=== PATIENT | female | born 1945 | race Caucasian/White ===

== ENCOUNTER 2018-02-10 10:58 | Inpatient (IN) | payer OTHER ==
[2018-02-10] MEDS ORDERED: NA CHLORIDE 0.9% 1,000 ML ONE ×2 (11:46→15:12)
[2018-02-10 12:11] LABS: Absolute Lymphocytes (CBC) 0.8 K/uL (0.7-4.9); Absolute Monocytes 0.6 K/uL (0.1-1.3); Absolute Neutrophil 7.8 K/uL (1.8-8.0); Basophils % 0.5 % (0-1.3); Eosinophils % 0.2 % (0-4.4); Hematocrit 36.1 % (36.0-45.0); Lymphocytes % 8.7 % (15.3-44.8); MCH 37.8 pg (27.0-35.0); MCV 110.3 fL (80-100); Monocytes % 6.1 % (3.3-12.3); RBC Red Blood Cell Count 3.27 M/uL (3.86-4.86)
[2018-02-10 12:27] LABS: Protime INR 1.08
--- NOTE | 2018-02-10 12:37 | RAD REPORT ---
EXAM DESCRIPTION: RAD - Chest Single View - 02/10/2018 12:07 pm CLINICAL HISTORY: DYSPNEA Chest pain. COMPARISON: No comparisons FINDINGS: Portable technique limits examination quality. The lungs are grossly clear. The heart is normal in size. No displaced fractures. IMPRESSION: No acute intrathoracic process suspected.
[2018-02-10 12:43] LABS: ALT/SGPT 33 U/L (12-78); AST/SGOT 27 U/L (15-37); Albumin 2.8 g/dL (3.4-5.0); Alkaline Phosphatase 107 U/L (45-117); BUN Blood Urea Nitrogen 13 mg/dL (7-18); Bicarbonate 25 mmol/L (21-32); Bilirubin Direct 0.4 mg/dL (0-0.2); Bilirubin Total 1.1 mg/dL (0.2-1.0); Glucose Level 122 mg/dL (74-106); Magnesium 1.9 mg/dL (1.8-2.4); NT PRO-BNP 330 pg/mL (<125); Potassium 3.9 mmol/L (3.5-5.1); Protein, Total 6.4 g/dL (6.4-8.2); Sodium Level 138 mmol/L (136-145); Troponin (Emerg Dept Use Only) < 0.02 ng/mL (0.0-0.045)
[2018-02-10 12:52] LABS: Anisocytosis 1+; Blood Morphology Comment NOTED (NOT SEEN); Macrocytosis 2+; Platelet Estimate ADEQ; Urine White Blood Cell Casts OK
[2018-02-10 13:57] LABS: Folic Acid, (Folate) 2.3 ng/mL (3.1-17.5)
[2018-02-10] MEDS ORDERED: FOLIC ACID 5 MG/ML VIAL ONE (14:22)
--- NOTE | 2018-02-10 14:36 | RAD REPORT ---
EXAM DESCRIPTION: CTAbdomen Pelvis W Contrast - 02/10/2018 2:21 pm CLINICAL HISTORY: Abdominal pain. iv only;Abd pain COMPARISON: No comparisons TECHNIQUE: Biphasic CT imaging of the abdomen and pelvis was performed with 100 ml non-ionic IV cont rast. All CT scans are performed using dose optimization technique as appropriate and may include automated exposure control or mA/KV adjustment according to patient size. FINDINGS: The lung bases are clear.Small hiatal hernia. Diffuse fatty liver is present. The spleen, pancreas and adrenal glands are normal. Few areas of livia ical hypodensity noted in both kidneys may be related to previous infection. No hydronephrosis or agg ressive renal mass. No bowel obstruction, free air, free fluid or abscess. Large amount of stool is seen in the rectum wi th perirectal fat stranding and thickening. The urinary bladder is markedly distended. The appendix i s not identified as a discrete structure, however, no secondary findings of appendicitis are identifi ed. No evidence of significant lymphadenopathy. Mild L1 compression deformity is present. IMPRESSION: Rectal fecal impaction with stercoral colitis suspected. Marked urinary bladder distention may be related to bladder outlet obstruction or neurogenic bladder. Advise clinical correlation. Mild L1 compression deformity is present, age uncertain but probably chronic.
[2018-02-10] MEDS ORDERED: ONDANSETRON 4 MG/2 ML VIAL ONE (14:44)
--- NOTE | 2018-02-10 15:00 | ER ---
Nurse's Notes [facility] Name: Angle Gray Age: 72 yrs Sex: Female : 1945 Arrival Date: 02/10/2018 Time: 11:02 Bed 26 Private MD: Diagnosis: Hypotension;Stercoral colitis;Folate deficiency anemia;Fecal impaction Presentation: 02/10 11:11 Presenting complaint: Patient states: She has been having generalized weakness for the aj1 past few months, but this morning it was worse than it has ever been. Reports dizziness upon standing, and malaise. States that she had diarrhea last night, but she has been constipated before that. Denies cough, congestion, fever. 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 Transition of care: patient was not received from another setting of care. Onset of symptoms was February 10, 2018. Risk Assessment: Do you want to hurt yourself or someone else? Patient reports no desire to harm self or others. Initial Sepsis Screen: Does the patient meet any 2 criteria? Systolic BP < 90 mmHg. HR > 90 bpm. Yes Does the patient have a suspected source of infection? No. Patient's initial sepsis screen is negative. Care prior to arrival: None. 11:11 Acuity: NABIL 2 aj1 11:11 Method Of Arrival: EMS: [facility] aj1 Triage Assessment: 11:15 General: Appears in no apparent distress. uncomfortable, Behavior is calm, cooperative, aj1 appropriate for age. Pain: Denies pain. Historical: - Allergies: 11:15 Nitrofurantoin Macrocrystal; aj1 - Home Meds: 11:15 None [Active]; aj1 - PMHx: 11:15 "heart valve problem"; aj1 - PSHx: 11:15 D \\T\\ C; Tonsillectomy; Carpal Tunnel Repair; aj1 - Immunization history:: Flu vaccine is not up to date. - Social history:: Smoking status: Patient uses tobacco products, smokes one pack cigarettes per day. - Ebola Screening: : Patient denies travel to an Ebola-affected area in the 21 days before illness onset. Screenin:16 Abuse screen: Denies threats or abuse. Denies injuries from another. Nutritional aj1 screening: No deficits noted. Tuberculosis screening: No symptoms or risk factors identified. 17:01 Fall Risk No fall in past 12 months (0 pts). Secondary diagnosis (15 points) impaired aj1 mobility, IV access (20 points). Ambulatory Aid- None/Bed Rest/Nurse Assist (0 pts). Gait- Weak (10 pts.). Mental Status- Oriented to own ability (0 pts). Total Quintana Fall Scale indicates High Risk Score (45 or more points). As available patient and family educated on Fall Prevention Program and Strategies. Assessment: 11:16 General: Appears in no apparent distress. uncomfortable, Behavior is calm, cooperative, aj1 appropriate for age, Reports feeling ill for > 3 days, fatigue for >3 days. Pain: Denies pain. Neuro: Level of Consciousness is awake, alert, obeys commands, Oriented to person, place, time, situation, Moves all extremities. Reports generalized weakness. Speech is normal, Facial symmetry appears normal, Reports dizziness, generalized weakness. Cardiovascular: Heart tones S1 S2 present Patient's skin is warm and dry. Respiratory: Airway is patent Respiratory effort is even, unlabored, Respiratory pattern is regular, symmetrical, Breath sounds are clear bilaterally. GI: Abdomen is non-distended, Reports diarrhea. : No signs and/or symptoms were reported regarding the genitourinary system. EENT: No signs and/or symptoms were reported regarding the EENT system. Derm: No signs and/or symptoms reported regarding the dermatologic system. Skin is pink, warm \\T\\ dry. normal. Musculoskeletal: No signs and/or symptoms reported regarding the musculoskeletal system. Circulation, motion, and sensation intact. 12:15 Reassessment: Patient appears in no apparent distress at this time. No changes from aj1 previously documented assessment. Patient and/or family updated on plan of care and expected duration. Pain level reassessed. Patient is alert, oriented x 3, equal unlabored respirations, skin warm/dry/pink. 13:21 Reassessment: Patient appears in no apparent distress at this time. No changes from aj1 previously documented assessment. Patient and/or family updated on plan of care and expected duration. Pain level reassessed. Patient is alert, oriented x 3, equal unlabored respirations, skin warm/dry/pink. 14:35 Reassessment: Patient states that she is feeling nauseated from not eating. Notified ROSEANNA Ewing. Order recevied. 14:35 General: Appears in no apparent distress. uncomfortable, Behavior is calm, cooperative, aj1 appropriate for age. Pain: Denies pain. Neuro: Level of Consciousness is awake, alert, obeys commands, Speech is normal, Facial symmetry appears normal. Cardiovascular: Patient's skin is warm and dry. Respiratory: Airway is patent Respiratory effort is even, unlabored, Respiratory pattern is regular, symmetrical. Derm: Skin is pink, warm \\T\\ dry. normal. Musculoskeletal: Circulation, motion, and sensation intact. 15:30 Reassessment: Patient appears in no apparent distress at this time. No changes from aj1 previously documented assessment. Patient and/or family updated on plan of care and expected duration. Pain level reassessed. Patient is alert, oriented x 3, equal unlabored respirations, skin warm/dry/pink. 15:40 Reassessment: Patient placed on bed gutierrez to attempt to have a bowel movement after aj1 administration of Fleets enema. 16:05 Reassessment: Patient has been unable to have a bowel movement, patient cleaned up, and aj1 placed in a clean gown. 16:35 Reassessment: Patient appears in no apparent distress at this time. No changes from aj1 previously documented assessment. Patient and/or family updated on plan of care and expected duration. Pain level reassessed. Patient is alert, oriented x 3, equal unlabored respirations, skin warm/dry/pink. Vital Signs: 11:11 BP 80 / 65; Pulse 90; Resp 20; Temp 98.9; Pulse Ox 97% on R/A; Weight 60.33 kg (R); aj1 Height 5 ft. 3 in. (160.02 cm); Pain 0/10; 12:17 BP 88 / 63; Pulse 78; Resp 18; Pulse Ox 97% on R/A; aj1 12:34 BP 108 / 78; Pulse 73; Resp 18; Pulse Ox 99% on R/A; aj1 13:21 BP 119 / 83; Pulse 77; Resp 21; Pulse Ox 100% on R/A; aj1 14:08 BP 105 / 79; Pulse 80; Resp 18; Pulse Ox 91% on R/A; 5 14:41 BP 111 / 80; Pulse 84; Resp 20; Pulse Ox 98% on R/A; aj1 15:30 BP 125 / 62; Pulse 75; Resp 20; Pulse Ox 96% on R/A; aj1 16:19 BP 132 / 92; Pulse 89; Resp 18; Temp 98.2; Pulse Ox 100% ; mg2 11:11 Body Mass Index 23.56 (60.33 kg, 160.02 cm) aj1 ED Course: 11:02 Patient arrived in ED. iw 11:11 Sugey Casillas, RN is Primary Nurse. aj1 11:14 Triage completed. aj1 11:15 Arm band placed on Patient placed in an exam room. aj1 11:16 Patient has correct armband on for positive identification. Bed in low position. Call aj1 light in reach. Side rails up X 1. equipment monitor phototypesetting on. Pulse ox on. NIBP on. 11:16 No provider procedures requiring assistance completed. aj1 11:23 Michael Padgett PA is PHCP. jr8 11:23 Sukh Mccormick MD is Attending Physician. jr8 11:50 Inserted saline lock: 22 gauge in left forearm, using aseptic technique. iw 12:06 X-ray completed. Portable x-ray completed in exam room. Patient tolerated procedure ls3 well. 14:58 Fabienne Maradiaga MD is Hospitalizing Provider. jr8 15:32 Diaz cath inserted, using sterile technique, returned 1900 mL, diaz clamped at 1L for aj1 10 minutes and then unclamped.. Patient tolerated well. 17:01 Patient admitted, IV remains in place. aj1 Administered Medications: 11:52 Drug: NS 0.9% 1000 ml Route: IV; Rate: 1000 ml; Site: left forearm; iw 14:39 Follow up: IV Status: Completed infusion; IV Intake: 1000ml aj1 14:39 Drug: foLIC Acid 1 mg Route: IVPB; Site: left forearm; aj1 15:37 Follow up: Response: No adverse reaction; IV Status: Completed infusion aj1 14:39 Drug: Zofran 4 mg Route: IVP; Site: left antecubital; aj1 15:37 Follow up: Response: No adverse reaction aj1 15:31 Drug: Flagyl 500 mg Volume: 100 ml; Route: IVPB; Rate: 200 ml/hr; Infused Over: 30 mg2 mins; Site: left forearm; 17:03 Follow up: IV Status: Completed infusion; IV Intake: 100ml aj1 15:32 Drug: NS 0.9% 1000 ml Route: IV; Rate: 100 ml/hr; Site: left forearm; mg2 17:02 Follow up: IV Status: Infusion continued upon admission; IV Intake: 200ml aj1 15:37 Drug: Fleet Enema 133 ml Route: VA; aj1 17:03 Follow up: Response: No adverse reaction aj1 16:18 Drug: Cipro 400 mg Volume: 200 ml; Route: IVPB; Infused Over: 60 mins; Site: left mg2 forearm; 17:03 Follow up: IV Status: Infusion continued upon admission aj1 Intake: 14:39 IV: 1000ml; Total: 1000ml. aj1 17:02 IV: 200ml; Total: 1200ml. aj1 17:03 IV: 100ml; Total: 1300ml. aj Output: 15:34 Urine: 1900ml (Diaz); Total: 1900ml. mg2 Outcome: 14:59 Decision to Hospitalize by Provider. jr8 17:02 Admitted to Tele accompanied by nurse, via stretcher, with chart, Report called to camelia Donald RN 17:02 Condition: stable 17:02 Discharge instructions given to family, Instructed on the need for admit, Demonstrated understanding of instructions. 17:03 Patient left the ED. Signatures: Sugey Casillas, RN RN aj1 Moon Cain RN RN iw Michael Padgett PA PA jr8 Layla Cason 5 Killian Gabriel RN RN mg2 Franc Viera ls3 Corrections: (The following items were deleted from the chart) 15:48 15:32 Diaz cath inserted, using sterile technique, returned tiffanie urine. Patient aj1 tolerated well. by ROBINA Mayes mg2
--- NOTE | 2018-02-10 15:00 | EDPHYS ---
Physician Documentation [facility] Name: Angle Gray Age: 72 yrs Sex: Female : 1945 Arrival Date: 02/10/2018 Time: 11:02 Bed 26 Private MD: ED Physician Sukh Mccormick HPI: 02/11 06:22 This 72 yrs old Female presents to ER via EMS with complaints of General jr8 Weakness. 06:22 Patient stated that she has had increased general fatigue and weakness over the past jr8 few weeks. Has had lower blood pressure as well. Has been off all of her BP medicine . Severity of symptoms: At their worst the symptoms were moderate in the emergency department the symptoms are unchanged. The patient has not experienced similar symptoms in the past. The patient has not recently seen a physician. 06:22 Stated that she has had lower abdominal discomfort and feels that her abdomen is jr8 getting bigger . Historical: - Allergies: 02/10 11:15 Nitrofurantoin Macrocrystal; aj1 - Home Meds: 11:15 None [Active]; aj1 - PMHx: 11:15 "heart valve problem"; aj1 - PSHx: 11:15 D \\T\\ C; Tonsillectomy; Carpal Tunnel Repair; aj1 - Immunization history:: Flu vaccine is not up to date. - Social history:: Smoking status: Patient uses tobacco products, smokes one pack cigarettes per day. - Ebola Screening: : Patient denies travel to an Ebola-affected area in the 21 days before illness onset. ROS: 02/11 06:22 Eyes: Negative for injury, pain, redness, and discharge, ENT: Negative for injury, jr8 pain, and discharge, Neck: Negative for injury, pain, and swelling, Cardiovascular: Negative for chest pain, palpitations, and edema, Respiratory: Negative for shortness of breath, cough, wheezing, and pleuritic chest pain, Back: Negative for injury and pain, MS/Extremity: Negative for injury and deformity, Skin: Negative for injury, rash, and discoloration, Neuro: Negative for headache, weakness, numbness, tingling, and seizure. Constitutional: Positive for fatigue. Abdomen/GI: Positive for abdominal pain, constipation, abdominal distension. Exam: 06:22 Eyes: Pupils equal round and reactive to light, extra-ocular motions intact. Lids and jr8 lashes normal. Conjunctiva and sclera are non-icteric and not injected. Cornea within normal limits. Periorbital areas with no swelling, redness, or edema. ENT: Nares patent. No nasal discharge, no septal abnormalities noted. Tympanic membranes are normal and external auditory canals are clear. Oropharynx with no redness, swelling, or masses, exudates, or evidence of obstruction, uvula midline. Mucous membranes moist. Neck: Trachea midline, no thyromegaly or masses palpated, and no cervical lymphadenopathy. Supple, full range of motion without nuchal rigidity, or vertebral point tenderness. No Meningismus. Cardiovascular: Regular rate and rhythm with a normal S1 and S2. No gallops, murmurs, or rubs. Normal PMI, no JVD. No pulse deficits. Respiratory: Lungs have equal breath sounds bilaterally, clear to auscultation and percussion. No rales, rhonchi or wheezes noted. No increased work of breathing, no retractions or nasal flaring. Back: No spinal tenderness. No costovertebral tenderness. Full range of motion. Skin: Warm, dry with normal turgor. Normal color with no rashes, no lesions, and no evidence of cellulitis. MS/ Extremity: Pulses equal, no cyanosis. Neurovascular intact. Full, normal range of motion. Neuro: Awake and alert, GCS 15, oriented to person, place, time, and situation. Cranial nerves II-XII grossly intact. Motor strength 5/5 in all extremities. Sensory grossly intact. Cerebellar exam normal. Normal gait. 06:22 Abdomen/GI: Inspection: distension, that is mild, Bowel sounds: active, all quadrants, Palpation: soft, in all quadrants, mild abdominal tenderness, in the suprapubic area, right lower quadrant and left lower quadrant, mass, is not appreciated, rebound tenderness, is not appreciated, voluntary guarding, is not appreciated, involuntary guarding, is not appreciated, no appreciated organomegaly, Indicators: McBurney's point is not tender, Juárez's sign is negative, Rovsing's sign is negative, Liver: tenderness, is not appreciated. Vital Signs: 02/10 11:11 BP 80 / 65; Pulse 90; Resp 20; Temp 98.9; Pulse Ox 97% on R/A; Weight 60.33 kg (R); aj1 Height 5 ft. 3 in. (160.02 cm); Pain 0/10; 12:17 BP 88 / 63; Pulse 78; Resp 18; Pulse Ox 97% on R/A; aj1 12:34 BP 108 / 78; Pulse 73; Resp 18; Pulse Ox 99% on R/A; aj1 13:21 BP 119 / 83; Pulse 77; Resp 21; Pulse Ox 100% on R/A; aj1 14:08 BP 105 / 79; Pulse 80; Resp 18; Pulse Ox 91% on R/A; mh5 14:41 BP 111 / 80; Pulse 84; Resp 20; Pulse Ox 98% on R/A; aj1 15:30 BP 125 / 62; Pulse 75; Resp 20; Pulse Ox 96% on R/A; aj1 16:19 BP 132 / 92; Pulse 89; Resp 18; Temp 98.2; Pulse Ox 100% ; mg2 11:11 Body Mass Index 23.56 (60.33 kg, 160.02 cm) [facility] MDM: 11:23 Patient medically screened. [facility] 14:57 Data reviewed: vital signs, nurses notes, lab test result(s), radiologic studies, CT jr8 scan. Data interpreted: Pulse oximetry: on room air is 98 %. Interpretation: normal. Counseling: I had a detailed discussion with the patient and/or guardian regarding: the historical points, exam findings, and any diagnostic results supporting the discharge/admit diagnosis, lab results, radiology results, the need for further work-up and treatment in the hospital. Physician consultation: Fabienne Maradiaga MD was called at 14:58, was contacted at 14:58, regarding admission, to the medical/surgical unit. consult, patient's condition, and will see patient would like consultation with Dr. Kilgore. 02/10 11:23 Order name: Basic Metabolic Panel; Complete Time: 12:47 02/10 11:23 Order name: CBC with Diff; Complete Time: 13:01 02/10 11:23 Order name: LFT's; Complete Time: 12:47 02/10 11:23 Order name: Magnesium; Complete Time: 12:47 [facility] 02/10 11:23 Order name: NT PRO-BNP; Complete Time: 12:47 [facility] 02/10 11:23 Order name: PT-INR; Complete Time: 12:47 [facility] 02/10 11:23 Order name: Troponin (emerg Dept Use Only); Complete Time: 12:47 [facility] 02/10 11:23 Order name: XRAY Chest (1 view) [facility] 02/10 12:37 Order name: RAD; Complete Time: 12:47 [facility] 02/10 12:52 Order name: CBC Smear Scan; Complete Time: 13:01 [facility] 02/10 13:02 Order name: Folic Acid,Serum (folate) [facility] 02/10 13:02 Order name: B12 [facility] 02/10 13:58 Order name: Folic Acid, (Folate); Complete Time: 14:06 [facility] 02/10 13:58 Order name: Vitamin B12 Level; Complete Time: 14:06 [facility] 02/10 11:23 Order name: EKG; Complete Time: 11:24 [facility] 02/10 11:23 Order name: Cardiac monitoring; Complete Time: 11:52 [facility] 02/10 11:23 Order name: EKG - Nurse/Tech; Complete Time: 11:52 [facility] 02/10 11:23 Order name: IV Saline Lock; Complete Time: 12:14 [facility] 02/10 11:23 Order name: Labs collected and sent; Complete Time: 12:14 [facility] 02/10 11:23 Order name: O2 Per Protocol; Complete Time: 11:52 [facility] 02/10 11:23 Order name: O2 Sat Monitoring; Complete Time: 11:52 [facility] 02/10 13:55 Order name: CT Abd/Pelvis - W/Contrast [facility] 02/10 14:38 Order name: CT; Complete Time: 14:42 [facility] 02/10 14:57 Order name: Gaston; Complete Time: 15:31 [facility] Administered Medications: 11:52 Drug: NS 0.9% 1000 ml Route: IV; Rate: 1000 ml; Site: left forearm; iw 14:39 Follow up: IV Status: Completed infusion; IV Intake: 1000ml aj1 14:39 Drug: foLIC Acid 1 mg Route: IVPB; Site: left forearm; aj1 15:37 Follow up: Response: No adverse reaction; IV Status: Completed infusion aj1 14:39 Drug: Zofran 4 mg Route: IVP; Site: left antecubital; aj1 15:37 Follow up: Response: No adverse reaction aj1 15:31 Drug: Flagyl 500 mg Volume: 100 ml; Route: IVPB; Rate: 200 ml/hr; Infused Over: 30 mg2 mins; Site: left forearm; 17:03 Follow up: IV Status: Completed infusion; IV Intake: 100ml aj1 15:32 Drug: NS 0.9% 1000 ml Route: IV; Rate: 100 ml/hr; Site: left forearm; mg2 17:02 Follow up: IV Status: Infusion continued upon admission; IV Intake: 200ml aj1 15:37 Drug: Fleet Enema 133 ml Route: [place]; aj1 17:03 Follow up: Response: No adverse reaction aj1 16:18 Drug: Cipro 400 mg Volume: 200 ml; Route: IVPB; Infused Over: 60 mins; Site: left mg2 forearm; 17:03 Follow up: IV Status: Infusion continued upon admission aj1 Disposition: 17:09 Co-signature as Attending Physician, Sukh Mccormick MD I agree with the assessment and shaan plan of care. Disposition: 02/10/18 14:59 Hospitalization ordered by Fabienne Maradiaga for Inpatient Admission. Preliminary diagnosis are Hypotension, Stercoral colitis, Folate deficiency anemia, Fecal impaction. - Bed requested for Telemetry/MedSurg (Inpatient). - Status is Inpatient Admission. iw - Condition is Stable. - Problem is new. - Symptoms have improved. UTI on Admission? No Signatures: Dispatcher [employer] EDMS Melanie Martinez Angela, RN RN aj1 Sukh Mccormick MD MD cha Williams, Irene, RN RN Michael Padgett PA PA jr8 Killian Gabriel RN RN mg2 Corrections: (The following items were deleted from the chart) 14:59 14:59 Hospitalization Ordered by Fabienne Maradiaga MD for Inpatient Admission. Preliminary jr8 diagnosis is Hypotension; Stercoral colitis; Folate deficiency anemia. Bed requested for Telemetry/MedSurg (Inpatient). Status is Inpatient Admission. Condition is Stable. Problem is new. Symptoms have improved. UTI on Admission? No. jr8 16:18 14:59 02/10/2018 14:59 Hospitalization Ordered by Fabienne Maradiaga MD for Inpatient bd Admission. Preliminary diagnosis is Hypotension; Stercoral colitis; Folate deficiency anemia; Fecal impaction. Bed requested for Telemetry/MedSurg (Inpatient). Status is Inpatient Admission. Condition is Stable. Problem is new. Symptoms have improved. UTI on Admission? No. jr8 17:03 16:18 02/10/2018 14:59 Hospitalization Ordered by Fabienne Maradiaga MD for Inpatient iw Admission. Preliminary diagnosis is Hypotension; Stercoral colitis; Folate deficiency anemia; Fecal impaction. Bed requested for Telemetry/MedSurg (Inpatient). Status is Inpatient Admission. Condition is Stable. Problem is new. Symptoms have improved. UTI on Admission? No. bd
[2018-02-10] MEDS ORDERED: FLEET ENEMA ADULT PR ONE ×2 (15:07→15:12)
[2018-02-10] MEDS ORDERED: CIPROFLOXACIN 400mg IV 400 MG/200 ML BAG IV ONE (15:12)
[2018-02-10] MEDS ORDERED: METRONIDAZOLE 500mg IVPB 500 MG/100 ML BAG IV ONE (15:12)
[2018-02-10] MEDS ORDERED: ACETAMINOPHEN 500 MG TAB PO PRN (17:35)
[2018-02-10] MEDS: INSULIN -REGULAR HUMAN 50 UNIT/0.5 ML ML SQ SCH ×2 (17:35→21:00)
[2018-02-10] MEDS: NA CHLORIDE 0.9% 1,000 ML IV SCH (17:35)
--- NOTE | 2018-02-10 17:41 | P.HP ---
Certification for Inpatient Patient admitted to: Inpatient With expected LOS: >2 Midnights Patient will require the following post-hospital care: None Practitioner: I am a practitioner with admitting privileges, knowledge of patient current condition, hospital course, and medical plan of care. Services: Services provided to patient in accordance with Admission requirements found in Title 42 Section 412.3 of the Code of Federal Regulations Patient History Date of Service: 02/10/18 Primary Care Provider: Dr Mathew Reason for admission: Colitis History of Present Illness: 72 y/o F with Significant Pmhx of HTN who presented to the ED with c/o generalized weakness that has been going on for past couple of weeks and has been getting progressively worse. Pt was recently seen at [facility] and was w/u for Stroke. At the time all imaging studies and lab work for stroke was negative. Pt states since then she has been having some syncopal episodes due to dizziness and weakness. States she also have been having poor PO intake and has been loosing weight as well. no other complains to offer at this time. Denied CP, SOB, Fever or chills. Was taking azole recently for UTI. She noticed her urine as been dark as well. In the ER patient was found to have Bladder distention, Colitis and Hypotension and thus was admitted for further workup. Allergies nitrofurantoin Allergy (Verified 02/10/18 16:30) Itching/Hives/Rash Review of Systems 10-point ROS is otherwise unremarkable Physical Examination - Vital Signs Temperature: 98.2 F Blood Pressure: 132/92 Pulse: 89 Respirations: 18 - Physical Exam General: Alert, Oriented x3, Cachectic HEENT: Atraumatic, PERRLA Neck: Supple, 2+ carotid pulse no bruit, No LAD, Without JVD or thyroid abnormality Respiratory: Clear to auscultation bilaterally, Normal air movement Cardiovascular: Regular rate/rhythm, Normal S1 S2 Gastrointestinal: Normal bowel sounds, No tenderness Musculoskeletal: No tenderness Integumentary: No rashes Neurological: Normal speech, Abnormal strength, Abnormal tone Lymphatics: No axilla or inguinal lymphadenopathy Urinary: Gaston catheter (With dark Urine) - Studies Laboratory Data (last 24 hrs) 02/10/18 12:10: Sodium 138, Potassium 3.9, BUN 13, Creatinine 0.80, Glucose 122 H, Magnesium 1.9, Total Bilirubin 1.1 H, AST 27, ALT 33, Alkaline Phosphatase 107 02/10/18 11:50: PT 12.8 H, INR 1.08 02/10/18 11:50: WBC 9.3, Hgb 12.4, Hct 36.1, Plt Count 174 Assessment and Plan - Problems (Diagnosis) (1) Syncope Current Visit: Yes Status: Acute Plan: Vasovagal syncope 2.2 to FTT 2.2 to poor Intake. -PT consulted. Reccs Appreciated -CM consulted for possible placement vs HH -ECHO and carotid pending. -Recent MRI and Head CT negative Qualifiers: Syncope type: vasovagal syncope Qualified Code(s): R55 - Syncope and collapse (2) Colitis Current Visit: Yes Status: Acute Plan: Stercoral Colitis with high risk for Ulcer -Gen Surgery Consulted. Awaiting reccs -IV cipro and flagyl for now -IV fluids and NPO for now (3) Generalized weakness Current Visit: Yes Status: Acute Plan: 2.2 to FTT vs folate Def -PT consulted. -IV fluids -Dietary Consulted (4) Folate deficiency Current Visit: Yes Status: Acute Plan: Unknown Etiology. -Will R.o Malignancy and Pharmacological effect. -Lab work pending (5) Bladder distention Current Visit: Yes Status: Acute Plan: Bladder distention on CT -UA ordered -Gaston Placed -Monitor closely (6) HTN (hypertension) Current Visit: Yes Status: Acute Plan: Hypotension for now -IV fluids and cardiac W.u Qualifiers: Hypertension type: essential hypertension Qualified Code(s): I10 - Essential (primary) hypertension Discharge Plan: Other Plan to discharge in: Greater than 2 days - Advance Directives Does patient have a Living Will: No Does patient have a Durable POA for Healthcare: No - Code Status/Comfort Care Code Status Assessed: Yes Critical Care: No
--- NOTE | 2018-02-10 19:31 | RAD REPORT ---
EXAM DESCRIPTION: US - CP - 02/10/2018 7:21 pm CLINICAL HISTORY: Syncope TIA/CVA COMPARISON: No comparisons TECHNIQUE: Real-time sonographic evaluation of both carotid systems was performed. Doppler interroga tion was performed with waveform tracing bilaterally. FINDINGS: Normal high resistance waveforms are noted in both external carotid arteries. The common c arotid arteries and internal carotid arteries show normal low resistance waveforms. Mild hard plaque is seen in both carotid bulbs. Peak systolic and end diastolic velocity values and t he ICA/CCA ratios are in the non-hemodynamically significant range. Antegrade flow seen in both vertebral arteries. IMPRESSION: Mild hard plaque in both carotid bulbs. No evidence of a hemodynamically significant stenosis.
[2018-02-10 19:54] VITALS: BMI 23.6
--- NOTE | 2018-02-10 22:07 | EKG ---
Test Date: 2018-02-10 Test Time: 10:59:47 Child Care Sitter: MARIO MEASUREMENT RESULTS: Intervals: Rate: 101 HI: 124 QRSD: 124 QT: 412 QTc: 534 Standish: P: 61 HI: 124 QRS: 94 T: -84 INTERPRETIVE STATEMENTS: Sinus tachycardia Right bundle branch block T wave abnormality, consider inferolateral ischemia Abnormal ECG No previous ECG available for comparison Electronically Signed On 02-10-18 22:06:19 BAG BLEACHER by Jono Arriola
[2018-02-11] MEDS: NA CHLORIDE 0.9% 1,000 ML IV SCH ×4 (00:39→23:12)
[2018-02-11] MEDS: METRONIDAZOLE 500mg IVPB 500 MG/100 ML BAG IV SCH ×3 (00:40→17:56)
[2018-02-11 04:19] LABS: Urine Appearance CLEAR; Urine Blood NEGATIVE (NEG); Urine Color ORANGE; Urine Glucose TRACE (NEG); Urine Protein 1+ (NEG); Urine Specific Gravity >=1.030 (1.005-1.030)
[2018-02-11] MEDS: CIPROFLOXACIN 400mg IV 400 MG/200 ML BAG IV SCH ×2 (04:23→17:57)
[2018-02-11 05:10] LABS: Absolute Lymphocytes (CBC) 0.7 K/uL (0.7-4.9); Absolute Monocytes 0.5 K/uL (0.1-1.3); Absolute Neutrophil 5.7 K/uL (1.8-8.0); Basophils % 0.3 % (0-1.3); Eosinophils % 0.9 % (0-4.4); Hematocrit 30.8 % (36.0-45.0); Lymphocytes % 9.9 % (15.3-44.8); MCH 38.7 pg (27.0-35.0); MPV 9.1 fL (7.6-11.3); Monocytes % 6.9 % (3.3-12.3)
[2018-02-11 05:15] LABS: MCV 110.1 fL (80-100)
[2018-02-11 05:20] LABS: ALT/SGPT 26 U/L (12-78); AST/SGOT 27 U/L (15-37); Albumin 2.3 g/dL (3.4-5.0); Alkaline Phosphatase 92 U/L (45-117); BUN Blood Urea Nitrogen 12 mg/dL (7-18); Bicarbonate 22 mmol/L (21-32); Bilirubin Total 0.6 mg/dL (0.2-1.0); Glucose Level 106 mg/dL (74-106); Magnesium 1.7 mg/dL (1.8-2.4); Phosphorus 2.9 mg/dL (2.5-4.9); Potassium 3.1 mmol/L (3.5-5.1); Protein, Total 5.3 g/dL (6.4-8.2); Sodium Level 142 mmol/L (136-145)
[2018-02-11 05:30] LABS: Urine Bilirubin NEGATIVE (NEG); Urine Microscopic Reflex ORDER UMIC
[2018-02-11 05:48] LABS: Urine Bacteria 20-50 /HPF (<20); Urine Culture Reflex Order REFLEXED; Urine RBC <5 /HPF (NONE SEEN)
[2018-02-11] MEDS: INSULIN -REGULAR HUMAN 50 UNIT/0.5 ML ML SQ SCH ×4 (06:00→23:15)
[2018-02-11] MEDS ORDERED: MAGNESIUM SULFATE 1 gm IVPB 1 GM/100 ML BAG IV ONE (09:00)
[2018-02-11] MEDS ORDERED: POTASSIUM CL SA 10 MEQ TAB PO ONE (09:00)
--- NOTE | 2018-02-11 15:20 | P.PN ---
Subjective Date of Service: 02/11/18 Primary Care Provider: Dr Mathew Chief Complaint: Colitis Patient seen and examined at bedside with RN. Chart reviewed. Case discussed with general surgery. Patient currently is doing well. Has not had a bowel movement since last night. Has had 2 Fleet enema and given. Has not worked with physical therapy this morning either. Will await physical therapy recommendations at this time for further disposition. Review of Systems 10-point ROS is otherwise unremarkable Physical Examination - Vital Signs Temperature: 97.9 F Blood Pressure: 129/77 Pulse: 76 Respirations: 18 Pulse Ox (%): 98 - Physical Exam General: Alert, In no apparent distress HEENT: Atraumatic, PERRLA, EOMI Neck: Supple, JVD not distended Respiratory: Clear to auscultation bilaterally, Normal air movement Cardiovascular: Regular rate/rhythm, Normal S1 S2 Gastrointestinal: Normal bowel sounds, No tenderness Musculoskeletal: No tenderness Integumentary: No rashes Neurological: Normal speech, Normal tone, Normal affect Lymphatics: No axilla or inguinal lymphadenopathy - Studies Medications List Reviewed: Yes Assessment And Plan - Current Problems (Diagnosis) (1) Syncope Onset Date: 02/11/18 Current Visit: Yes Status: Acute Plan: Vasovagal syncope 2.2 to FTT 2.2 to poor Intake. -PT consulted. Reccs Appreciated -CM consulted for possible placement vs HH -ECHO and carotid negative for any acute abnormality -Recent MRI and Head CT negative Qualifiers: Syncope type: vasovagal syncope Qualified Code(s): R55 - Syncope and collapse (2) Colitis Onset Date: 02/11/18 Current Visit: Yes Status: Acute Plan: Stercoral Colitis with high risk for Ulcer -Gen Surgery Consulted. Recommendations appreciated at this time -IV cipro and flagyl for now -IV fluids and advance diet to clear liquid diet for right now (3) Generalized weakness Onset Date: 02/11/18 Current Visit: Yes Status: Acute Plan: 2.2 to FTT vs folate Def -PT consulted. -IV fluids -Dietary Consulted (4) Folate deficiency Onset Date: 02/11/18 Current Visit: Yes Status: Acute Plan: Most likely secondary to colitis -started on folate replacement at this time (5) Bladder distention Onset Date: 02/11/18 Current Visit: Yes Status: Acute Plan: Bladder distention on CT -UA ordered. Culture pending at this time -Gaston Placed and is draining clear urine -Monitor closely (6) HTN (hypertension) Onset Date: 02/11/18 Current Visit: Yes Status: Acute Plan: Hypotension for now -IV fluids and cardiac W.u Qualifiers: Hypertension type: essential hypertension Qualified Code(s): I10 - Essential (primary) hypertension - Plan Awaiting clinical improvement at the time. Patient's diet has been advanced slowly today. Will continue to monitor here closely. Anticipate discharge in 24-48 hr. Discharge Plan: Home Plan to discharge in: 48 Hours - Code Status/Comfort Care Code Status Assessed: Yes Critical Care: No
--- NOTE | 2018-02-11 17:51 | ECHO ---
HEIGHT: 5 ft 3 in WEIGHT: 133 lb 0 oz DATE OF STUDY: 02/11/[address]: Fabienne Maradiaga MD 2-DIMENSIONAL: YES M.MODE: YES DOPPLER: YES COLOR FLOW: YES TDS: PORTABLE: DEFINITY: BUBBLE STUDY: DIAGNOSIS: CARDIAC HISTORY: CATHERIZATION: NO SURGERY: NO PROSTHETIC VALVE: NO PACEMAKER: NO MEASUREMENTS (cm) DIASTOLIC (NORMALS) SYSTOLIC (NORMALS) IVSd 1.0 (0.6-1.2) LA Diam 2.8 (1.9-4.0) LVEF 60% LVIDd 2.9 (3.5-5.7) LVIDs 2.0 (2.0-3.5) %FS 31% LVPWd 1.2 (0.6-1.2) Ao Diam 2.7 (2.0-3.7) 2 DIMENSIONAL ASSESSMENT: RIGHT ATRIUM: NORMAL LEFT ATRIUM: NORMAL RIGHT VENTRICLE: NORMAL LEFT VENTRICLE: NORMAL TRICUSPID VALVE: NORMAL MITRAL VALVE: NORMAL PULMONIC VALVE: NORMAL AORTIC VALVE: NORMAL PERICARDIAL EFFUSION: NONE AORTIC ROOT: NORMAL LEFT VENTRICULAR WALL MOTION: NORMAL DOPPLER/COLOR FLOW: NORMAL COMMENTS: NORMAL TWO DIMENSIONAL ECHOCARDIOGRAM WITH DOPPLER. NO WALL MOTION ABNORMALITY. NO EFFUSION. TECHNOLOGIST: CATA VIRGEN
--- NOTE | 2018-02-11 20:36 | CON ---
Date of Consultation: 02/11/2018 Reason For Consultation: Stercoral colitis. Brief History Of Present Illness: The patient is a 72-year-old female, who presents with a history of hypertension who presented to the emergency room with generalized weakness going on for s everal weeks prior to her coming to the hospital. She was seen at [facility] and had a workup for str harjinder at that time, which by report was all negative. She had some syncopal episodes and dizziness wea kness and had poor oral intake. She had no additional complaints at that time. She denied chest eben n or shortness of breath. She was seen in the ER. A CT scan of the abdomen showed that she had sign ificant bladder distention and stool burden in the rectum consistent with a possible fecal impaction. She did state that she had some mild abdominal discomfort, but it was very minimal and she continue d to have some small bowel movements at home and did not notice any significant change in her bowel h abits. Past Medical History: As above, but included hypertension and a possible heart valve problem. Past Surgical History: She has had carpal tunnel repair and tonsillectomy. Allergies: NITROFURANTOIN MACROCRYSTAL. Home Medications: None. Social History: She denies smoking, alcohol, or recreational drug use. Review of Systems: A 10-point review of systems other than HPI, denies. Physical Examination: Vital Signs: At the time examination her BMI is 23.6. Her vital signs were blood pressure 129/77, p ulse 76, respiratory rate 18, temperature 97.9. General: She is awake, alert, and oriented. Psychiatric: She is appropriate, conversive. HEENT: She is normocephalic. Sclerae anicteric. Mucous membranes moist. Oropharynx clear. Neck: Supple. No JVD. Chest: Normal expansion and excursion. Pulmonary: Clear to auscultation bilaterally. Abdomen: Soft, nontender, nondistended. No rebound. No guarding. No palpable masses. No organome annmarie. Her bowel sounds were normal. Extremities: No clubbing, cyanosis, or edema. Skin: Warm and dry. Laboratory Data: Reveals a white blood count of 7.0, hemoglobin 10.8, hematocrit 30.9, platelet coun t is 154, neutrophils 82%. Her sodium 142, potassium 4.0, chloride 110, carbon dioxide 22, BUN 12, c reatinine 0.5, glucose is 106, calcium 7.9, magnesium 1.7, total bilirubin 0.6. AST 27, ALT 26, scout line phosphatase 92. Her serum folate was 2.3. She had a UA, which showed positive nitrites, 4.0 ur obilinogen, 1+ leukocyte esterase, 20/50 white blood cells, 20/50 bacteria. She had imaging performe d as well which included a chest x-ray officially read as no acute intrathoracic process suspected. She had a CT of the abdomen and pelvis, which was also officially read as rectal fecal impaction with stercoral colitis suspected. Marked urinary bladder distention may be related to bladder outlet obs truction or neurogenic bladder. Mild L1 compression deformities present, age uncertain, but probably chronic. Assessment And Plan: This is a 72-year-old female who presents with resolving fecal impaction and ur inary retention. 1.Continue IV fluid hydration. 2.Electrolyte correction. 3.Gentle laxatives and allow bowel function to continue. Patient continues to have bowel function a s such I do not find that she requires a manual disimpaction. She has had several bowel movements si nce her admission to the hospital and now has had multiple large voluminous bowel movement. 4.Continue serial exams. Start clear liquid diet and advance as tolerated. Thank you for this interesting consult. LES/TAMI Voice ID: [id number] Report ID: [id number]
[2018-02-12] MEDS: METRONIDAZOLE 500mg IVPB 500 MG/100 ML BAG IV SCH ×4 (01:18→23:46)
[2018-02-12] MEDS: CIPROFLOXACIN 400mg IV 400 MG/200 ML BAG IV SCH ×2 (04:42→16:53)
[2018-02-12 06:43] LABS: ALT/SGPT 21 U/L (12-78); AST/SGOT 23 U/L (15-37); Alkaline Phosphatase 94 U/L (45-117); BUN Blood Urea Nitrogen 7 mg/dL (7-18); Bicarbonate 19 mmol/L (21-32); Bilirubin Total 0.4 mg/dL (0.2-1.0); Glucose Level 111 mg/dL (74-106); Magnesium 1.7 mg/dL (1.8-2.4); Phosphorus 2.2 mg/dL (2.5-4.9); Potassium 3.3 mmol/L (3.5-5.1); Sodium Level 141 mmol/L (136-145)
[2018-02-12 07:36] LABS: Absolute Lymphocytes (CBC) 0.7 K/uL (0.7-4.9); Absolute Monocytes 0.4 K/uL (0.1-1.3); Absolute Neutrophil 3.6 K/uL (1.8-8.0); Basophils % 0.2 % (0-1.3); Eosinophils % 1.8 % (0-4.4); Hematocrit 31.1 % (36.0-45.0); Lymphocytes % 14.7 % (15.3-44.8); MCH 37.6 pg (27.0-35.0); MCV 109.4 fL (80-100); MPV 8.5 fL (7.6-11.3); Monocytes % 8.5 % (3.3-12.3); RBC Red Blood Cell Count 2.84 M/uL (3.86-4.86)
[2018-02-12] MEDS ORDERED: MAGNESIUM SULFATE 1 gm IVPB 1 GM/100 ML BAG IV ONE (07:49)
[2018-02-12] MEDS ORDERED: POTASS/SODIUM PHOSPHATE 1 PKT POWD.PACK PO SCH (08:00)
[2018-02-12] MEDS ORDERED: POTASSIUM 25 MEQ EFFERV TAB PO ONE (09:00)
[2018-02-12] MEDS: POTASS/SODIUM PHOSPHATE 1 PKT POWD.PACK PO SCH ×3 (09:28→11:33)
[2018-02-12] MEDS: NA CHLORIDE 0.9% 1,000 ML IV SCH ×2 (09:29→19:35)
[2018-02-12 09:33] LABS: Blood Morphology Comment NOTED (NOT SEEN); Platelet Estimate ADEQ; Urine White Blood Cell Casts OK
[2018-02-12 09:34] LABS: Macrocytosis 2+
--- NOTE | 2018-02-12 10:58 | P.PN ---
Subjective Date of Service: 02/12/18 Primary Care Provider: Dr Mathew Chief Complaint: Colitis Subjective: Improving (Patient is improving, tolerting clears, continues to have bowel function) Physical Examination - Vital Signs Temperature: 98.0 F Blood Pressure: 153/105 Pulse: 96 Respirations: 20 Pulse Ox (%): 96 - Physical Exam General: Alert, In no apparent distress, Cooperative Gastrointestinal: Soft and benign, No ascites, No tenderness, No masses, No rebound, No guarding - Studies Medications List Reviewed: Yes Assessment And Plan - Current Problems (Diagnosis) (1) Colitis Onset Date: 02/11/18 Current Visit: Yes Status: Acute Plan: - Patient doing well from surgical standpoint - advance to soft diet - rehab
--- NOTE | 2018-02-12 15:49 | P.PN ---
Subjective Date of Service: 02/12/18 Primary Care Provider: Dr Mathew Chief Complaint: Colitis Patient seen and examined at bedside with RN. Chart reviewed. Case discussed with general surgery. Patient today is complaining of having some visual disturbance on the left eye. States that she has had visual problems before however has worsening of the visual acuity in the left eye. Patient also complains of having some ataxic gait that has been going on new since this morning. Review of Systems 10-point ROS is otherwise unremarkable Physical Examination - Vital Signs Temperature: 97.5 F Blood Pressure: 151/89 Pulse: 69 Respirations: 20 Pulse Ox (%): 98 - Physical Exam General: Alert, In no apparent distress HEENT: Atraumatic, PERRLA, EOMI Neck: Supple, JVD not distended Respiratory: Clear to auscultation bilaterally, Normal air movement Cardiovascular: Regular rate/rhythm, Normal S1 S2 Gastrointestinal: Normal bowel sounds, No tenderness Musculoskeletal: No tenderness Integumentary: No rashes Neurological: Normal speech, Normal tone, Cranial nerves 3-12 intact, Normal affect Lymphatics: No axilla or inguinal lymphadenopathy - Studies Medications List Reviewed: Yes Assessment And Plan - Current Problems (Diagnosis) (1) Syncope Onset Date: 02/11/18 Current Visit: Yes Status: Acute Plan: Vasovagal syncope 2.2 to FTT 2.2 to poor Intake. -PT consulted. Reccs Appreciated -CM consulted for possible placement -ECHO and carotid negative for any acute abnormality -repeat MRI today due to changes in neurological status Qualifiers: Syncope type: vasovagal syncope Qualified Code(s): R55 - Syncope and collapse (2) Colitis Onset Date: 02/11/18 Current Visit: Yes Status: Acute Plan: Stercoral Colitis with high risk for Ulcer -Gen Surgery Consulted. Recommendations appreciated at this time -IV cipro and flagyl for now -IV fluids and advance diet as tolerated (3) Generalized weakness Onset Date: 02/11/18 Current Visit: Yes Status: Acute Plan: 2.2 to FTT vs folate Def -PT consulted. -IV fluids -Dietary Consulted (4) Folate deficiency Onset Date: 02/11/18 Current Visit: Yes Status: Acute Plan: Most likely secondary to colitis -started on folate replacement at this time (5) Bladder distention Onset Date: 02/11/18 Current Visit: Yes Status: Acute Plan: Bladder distention on CT -UA ordered. Culture pending at this time -Gaston Placed and is draining clear urine -Monitor closely (6) HTN (hypertension) Onset Date: 02/11/18 Current Visit: Yes Status: Acute Plan: Stable at this time Qualifiers: Hypertension type: essential hypertension Qualified Code(s): I10 - Essential (primary) hypertension - Plan Awaiting clinical improvement at the time. Patient's diet has been advanced slowly today. Will continue to monitor here closely. Pending placement at this time Discharge Plan: Home Plan to discharge in: 48 Hours - Code Status/Comfort Care Code Status Assessed: Yes Critical Care: No
[2018-02-12] MEDS: ONDANSETRON 4 MG/2 ML VIAL IV PRN ×2 (16:38→20:00)
--- NOTE | 2018-02-12 20:45 | RAD REPORT ---
EXAM DESCRIPTION: MRI - Brain Wo Cont - 02/12/2018 8:26 pm CLINICAL HISTORY: Visual Changes History of CVA COMPARISON: No comparisons TECHNIQUE: Multi-sequence, multiplanar MR imaging of the brain was performed without contrast. FINDINGS: No intracranial hemorrhage, hydrocephalus or extra-axial fluid collections.Moderate genera lized brain atrophy. No edema or shift of midline structures. No findings to suspect brain mass. DWI is negative for acute CVA. Midline structures are normally formed. Mastoid air cells and paranasal sinuses are clear. IMPRESSION: No acute or concerning intracranial abnormalities.
[2018-02-13] MEDS: PANTOPRAZOLE 40MG TABLET PO SCH ×3 (00:23→16:37)
[2018-02-13] MEDS: CIPROFLOXACIN 400mg IV 400 MG/200 ML BAG IV SCH ×2 (05:33→16:38)
[2018-02-13 05:34] LABS: Absolute Lymphocytes (CBC) 0.8 K/uL (0.7-4.9); Absolute Monocytes 0.3 K/uL (0.1-1.3); Absolute Neutrophil 2.6 K/uL (1.8-8.0); Basophils % 0.4 % (0-1.3); Hematocrit 32.3 % (36.0-45.0); Lymphocytes % 21.6 % (15.3-44.8); MCH 37.7 pg (27.0-35.0); MPV 8.7 fL (7.6-11.3); Monocytes % 8.3 % (3.3-12.3); RBC Red Blood Cell Count 2.94 M/uL (3.86-4.86)
[2018-02-13] MEDS: NA CHLORIDE 0.9% 1,000 ML IV SCH ×3 (05:35→15:35)
[2018-02-13 05:39] LABS: MCV 109.7 fL (80-100)
[2018-02-13 05:53] LABS: ALT/SGPT 19 U/L (12-78); AST/SGOT 18 U/L (15-37); Albumin 2.2 g/dL (3.4-5.0); Alkaline Phosphatase 96 U/L (45-117); BUN Blood Urea Nitrogen 5 mg/dL (7-18); Bicarbonate 24 mmol/L (21-32); Bilirubin Total 0.6 mg/dL (0.2-1.0); Glucose Level 116 mg/dL (74-106); Magnesium 2.1 mg/dL (1.8-2.4); Phosphorus 2.9 mg/dL (2.5-4.9); Potassium 4.2 mmol/L (3.5-5.1); Protein, Total 5.2 g/dL (6.4-8.2); Sodium Level 143 mmol/L (136-145)
[2018-02-13] MEDS: METRONIDAZOLE 500mg IVPB 500 MG/100 ML BAG IV SCH ×2 (08:10→16:38)
--- NOTE | 2018-02-13 10:15 | P.PN ---
Subjective Date of Service: 02/13/18 Primary Care Provider: Dr Mathew Chief Complaint: Colitis Subjective: Improving (Patient continues to have daily bowel movements, no nausea, some GERD at times. No abdominal pain) Physical Examination - Vital Signs Temperature: 97.3 F Blood Pressure: 155/90 Pulse: 81 Respirations: 20 Pulse Ox (%): 98 - Physical Exam General: Alert, In no apparent distress, Cooperative Respiratory: Clear to auscultation bilaterally Gastrointestinal: Soft and benign, No tenderness, No masses, No rebound, No guarding Integumentary: Other (psoriasis) - Studies Medications List Reviewed: Yes Assessment And Plan - Current Problems (Diagnosis) (1) Colitis Onset Date: 02/11/18 Current Visit: Yes Status: Acute Plan: - Patient doing well from surgical standpoint - continue soft diet - rehab
--- NOTE | 2018-02-13 13:19 | P.PN ---
Subjective Date of Service: 02/13/18 Primary Care Provider: Dr Mathew Chief Complaint: Colitis Patient seen and examined at bedside with RN. Chart reviewed. Case discussed with general surgery. Doing well this morning. MRI of the brain is negative for any acute abnormality Review of Systems 10-point ROS is otherwise unremarkable Physical Examination - Vital Signs Temperature: 97.3 F Blood Pressure: 155/90 Pulse: 81 Respirations: 20 Pulse Ox (%): 98 - Physical Exam General: Alert, In no apparent distress HEENT: Atraumatic, PERRLA, EOMI Neck: Supple, JVD not distended Respiratory: Clear to auscultation bilaterally, Normal air movement Cardiovascular: Regular rate/rhythm, Normal S1 S2 Gastrointestinal: Normal bowel sounds, No tenderness Musculoskeletal: No tenderness Integumentary: No rashes Neurological: Normal speech, Normal tone, Normal affect Lymphatics: No axilla or inguinal lymphadenopathy - Studies Medications List Reviewed: Yes Assessment And Plan - Current Problems (Diagnosis) (1) Syncope Onset Date: 02/11/18 Current Visit: Yes Status: Acute Plan: Vasovagal syncope 2.2 to FTT 2.2 to poor Intake. -PT consulted. Reccs Appreciated -CM consulted for possible placement -ECHO and carotid negative for any acute abnormality -MRI is negative for any acute abnormality Qualifiers: Syncope type: vasovagal syncope Qualified Code(s): R55 - Syncope and collapse (2) Colitis Onset Date: 02/11/18 Current Visit: Yes Status: Acute Plan: Stercoral Colitis with high risk for Ulcer -Gen Surgery Consulted. Recommendations appreciated at this time -IV cipro and flagyl for now -IV fluids and advance diet as tolerated (3) Generalized weakness Onset Date: 02/11/18 Current Visit: Yes Status: Acute Plan: 2.2 to FTT vs folate Def -PT consulted. -IV fluids -Dietary Consulted (4) Bladder distention Onset Date: 02/11/18 Current Visit: Yes Status: Acute Plan: Bladder distention on CT -UA ordered. Culture pending at this time -Gaston Placed and is draining clear urine -Monitor closely (5) Folate deficiency Onset Date: 02/11/18 Current Visit: Yes Status: Acute Plan: Most likely secondary to colitis -started on folate replacement at this time (6) HTN (hypertension) Onset Date: 02/11/18 Current Visit: Yes Status: Acute Plan: Stable at this time Qualifiers: Hypertension type: essential hypertension Qualified Code(s): I10 - Essential (primary) hypertension - Plan Awaiting clinical improvement at the time. Patient's diet has been advanced slowly today. Will continue to monitor here closely. Pending placement at this time Discharge Plan: Home Plan to discharge in: 48 Hours - Code Status/Comfort Care Code Status Assessed: Yes Critical Care: No
[2018-02-13] MEDS: SUCRALFATE 1GM/10ML UCUP PO SCH (21:00)
[2018-02-14] MEDS: METRONIDAZOLE 500mg IVPB 500 MG/100 ML BAG IV SCH ×2 (01:00→09:54)
[2018-02-14] MEDS: NA CHLORIDE 0.9% 1,000 ML IV SCH ×4 (01:35→20:38)
[2018-02-14] MEDS: CIPROFLOXACIN 400mg IV 400 MG/200 ML BAG IV SCH (04:14)
[2018-02-14] MEDS: PANTOPRAZOLE 40MG TABLET PO SCH ×2 (09:54→16:41)
[2018-02-14] MEDS: SUCRALFATE 1GM/10ML UCUP PO SCH ×2 (09:55→20:38)
--- NOTE | 2018-02-14 15:24 | P.PN ---
Subjective Date of Service: 02/14/18 Primary Care Provider: Dr Mathew Chief Complaint: Colitis Patient seen and examined at bedside with RN. Chart reviewed. Case discussed with general surgery. Doing well this morning. MRI of the brain is negative for any acute abnormality Review of Systems 10-point ROS is otherwise unremarkable Physical Examination - Vital Signs Temperature: 97.4 F Blood Pressure: 139/98 Pulse: 96 Respirations: 16 Pulse Ox (%): 99 - Physical Exam General: Alert, In no apparent distress HEENT: Atraumatic, PERRLA, EOMI Neck: Supple, JVD not distended Respiratory: Clear to auscultation bilaterally, Normal air movement Cardiovascular: Regular rate/rhythm, Normal S1 S2 Gastrointestinal: Normal bowel sounds, No tenderness Musculoskeletal: No tenderness Integumentary: No rashes Neurological: Normal speech, Normal tone, Normal affect, Abnormal gait (Ataxic and box gait) Lymphatics: No axilla or inguinal lymphadenopathy - Studies Medications List Reviewed: Yes Assessment And Plan - Current Problems (Diagnosis) (1) Syncope Onset Date: 02/11/18 Current Visit: Yes Status: Acute Plan: Vasovagal syncope 2.2 to FTT 2.2 to poor Intake. -PT consulted. Reccs Appreciated -CM consulted for possible placement -ECHO and carotid negative for any acute abnormality -MRI is negative for any acute abnormality Qualifiers: Syncope type: vasovagal syncope Qualified Code(s): R55 - Syncope and collapse (2) Colitis Onset Date: 02/11/18 Current Visit: Yes Status: Acute Plan: Stercoral Colitis with high risk for Ulcer. Resolved -Gen Surgery Consulted. Recommendations appreciated at this time -IV cipro and flagyl for now and switch to PO once discharge -IV fluids and advance diet as tolerated (3) Generalized weakness Onset Date: 02/11/18 Current Visit: Yes Status: Acute Plan: 2.2 to FTT vs folate Def -PT consulted. -IV fluids -Dietary Consulted (4) Bladder distention Onset Date: 02/11/18 Current Visit: Yes Status: Acute Plan: Bladder distention on CT -UA ordered. Culture pending at this time -Gaston Placed and is draining clear urine -Monitor closely (5) Folate deficiency Onset Date: 02/11/18 Current Visit: Yes Status: Acute Plan: Most likely secondary to colitis -started on folate replacement at this time (6) HTN (hypertension) Onset Date: 02/11/18 Current Visit: Yes Status: Acute Plan: Stable at this time Qualifiers: Hypertension type: essential hypertension Qualified Code(s): I10 - Essential (primary) hypertension - Plan Awaiting clinical improvement at the time. Will continue to monitor here closely. Pending placement at this time Discharge Plan: Home Plan to discharge in: 48 Hours - Code Status/Comfort Care Code Status Assessed: Yes Critical Care: No
[2018-02-14] MEDS: metroNIDAZOLE 500 MG TABLET PO SCH ×2 (16:41→20:37)
[2018-02-14] MEDS: CIPROFLOXACIN HCL 500 MG TAB PO SCH (16:41)
[2018-02-15] MEDS: CIPROFLOXACIN HCL 500 MG TAB PO SCH ×2 (06:14→17:02)
[2018-02-15] MEDS: NA CHLORIDE 0.9% 1,000 ML IV SCH (06:14)
[2018-02-15] MEDS: PANTOPRAZOLE 40MG TABLET PO SCH ×2 (07:53→17:02)
[2018-02-15] MEDS: metroNIDAZOLE 500 MG TABLET PO SCH ×3 (09:44→20:06)
[2018-02-15] MEDS: SUCRALFATE 1GM/10ML UCUP PO SCH ×2 (09:44→20:07)
[2018-02-15] MEDS ORDERED: FUROSEMIDE 20 MG/ 2ML VIAL IV ONE (14:03)
--- NOTE | 2018-02-15 15:20 | P.PN ---
Subjective Date of Service: 02/15/18 Primary Care Provider: Dr Mathew Chief Complaint: Colitis Patient seen and examined at bedside with RN. Chart reviewed. Case discussed with general surgery. Doing well this morning. MRI of the brain is negative for any acute abnormality Review of Systems 10-point ROS is otherwise unremarkable Physical Examination - Vital Signs Temperature: 97 F Blood Pressure: 163/91 Pulse: 93 Respirations: 18 Pulse Ox (%): 96 - Physical Exam General: Alert, In no apparent distress HEENT: Atraumatic, PERRLA, EOMI Neck: Supple, JVD not distended Respiratory: Clear to auscultation bilaterally, Normal air movement Cardiovascular: Regular rate/rhythm, Normal S1 S2 Gastrointestinal: Normal bowel sounds, No tenderness Musculoskeletal: No tenderness Integumentary: No rashes Neurological: Normal speech, Normal tone, Normal affect Lymphatics: No axilla or inguinal lymphadenopathy - Studies Medications List Reviewed: Yes Assessment And Plan - Current Problems (Diagnosis) (1) Syncope Onset Date: 02/11/18 Current Visit: Yes Status: Acute Plan: Vasovagal syncope 2.2 to FTT 2.2 to poor Intake. -PT consulted. Reccs Appreciated -CM consulted for possible placement -ECHO and carotid negative for any acute abnormality -MRI is negative for any acute abnormality Qualifiers: Syncope type: vasovagal syncope Qualified Code(s): R55 - Syncope and collapse (2) Colitis Onset Date: 02/11/18 Current Visit: Yes Status: Acute Plan: Stercoral Colitis with high risk for Ulcer. Resolved -Gen Surgery Consulted. Recommendations appreciated at this time -PO cipro and flagyl for now -advance diet as tolerated (3) Generalized weakness Onset Date: 02/11/18 Current Visit: Yes Status: Acute Plan: 2.2 to FTT vs folate Def -PT consulted. -IV fluids -Dietary Consulted (4) Bladder distention Onset Date: 02/11/18 Current Visit: Yes Status: Acute Plan: Bladder distention on CT -UA ordered. Culture pending at this time -Gaston Placed and is draining clear urine -Monitor closely (5) Folate deficiency Onset Date: 02/11/18 Current Visit: Yes Status: Acute Plan: Most likely secondary to colitis -started on folate replacement at this time (6) HTN (hypertension) Onset Date: 02/11/18 Current Visit: Yes Status: Acute Plan: Stable at this time Qualifiers: Hypertension type: essential hypertension Qualified Code(s): I10 - Essential (primary) hypertension - Plan Awaiting clinical improvement at the time. Will continue to monitor here closely. Pending placement at this time Discharge Plan: Home Plan to discharge in: 48 Hours - Code Status/Comfort Care Code Status Assessed: Yes Critical Care: No
--- NOTE | 2018-02-15 16:00 | RAD REPORT ---
EXAM DESCRIPTION: RAD - Chest Single View - 02/15/2018 3:18 pm CLINICAL HISTORY: Crackles in lung gerber, suspected pneumonia COMPARISON: February 10 TECHNIQUE: AP portable chest image was obtained 1507 hours . FINDINGS: Lung volumes are normal. New left base opacification is present partially obscuring the le ft hemidiaphragm. No failure or volume overload. Heart and vasculature are normal. No measurable pleu ral effusion and no pneumothorax. No acute bony abnormality seen. No acute aortic findings suspected. IMPRESSION: Small or early left lung base pneumonia.
[2018-02-15] MEDS: THIAMINE 200 MG/2 ML INJ IV SCH (17:29)
[2018-02-15 17:32] LABS: Absolute Lymphocytes (CBC) 0.5 K/uL (0.7-4.9); Absolute Monocytes 0.2 K/uL (0.1-1.3); Absolute Neutrophil 2.2 K/uL (1.8-8.0); Basophils % 0.3 % (0-1.3); Eosinophils % 0.3 % (0-4.4); Hematocrit 31.8 % (36.0-45.0); Lymphocytes % 16.7 % (15.3-44.8); MCH 37.1 pg (27.0-35.0); MCV 108.9 fL (80-100); MPV 8.2 fL (7.6-11.3); Monocytes % 7.4 % (3.3-12.3); RBC Red Blood Cell Count 2.92 M/uL (3.86-4.86)
[2018-02-15 17:52] LABS: Anisocytosis SLIGHT; Blood Morphology Comment NOTED (NOT SEEN); Macrocytosis 1+; Platelet Estimate ADEQ
[2018-02-15 18:20] LABS: ALT/SGPT 16 U/L (12-78); AST/SGOT 15 U/L (15-37); Albumin 2.4 g/dL (3.4-5.0); Alkaline Phosphatase 92 U/L (45-117); BUN Blood Urea Nitrogen 3 mg/dL (7-18); Bicarbonate 24 mmol/L (21-32); Bilirubin Total 0.4 mg/dL (0.2-1.0); Folic Acid, (Folate) 2.6 ng/mL (3.1-17.5); Glucose Level 120 mg/dL (74-106); Potassium 3.4 mmol/L (3.5-5.1); Protein, Total 5.5 g/dL (6.4-8.2); Sodium Level 141 mmol/L (136-145)
[2018-02-15] MEDS ORDERED: POTASSIUM 25 MEQ EFFERV TAB PO ONE (19:43)
[2018-02-16 05:49] LABS: BUN Blood Urea Nitrogen 3 mg/dL (7-18); Bicarbonate 23 mmol/L (21-32); Glucose Level 95 mg/dL (74-106); Potassium 3.5 mmol/L (3.5-5.1); Sodium Level 138 mmol/L (136-145)
[2018-02-16] MEDS ORDERED: POTASSIUM 25 MEQ EFFERV TAB PO ONE (06:00)
[2018-02-16] MEDS: CIPROFLOXACIN HCL 500 MG TAB PO SCH ×2 (06:31→18:24)
[2018-02-16] MEDS ORDERED: THIAMINE HCL 100 MG TABLET PO SCH (09:00)
[2018-02-16] MEDS: FOLIC ACID 1 MG TABLET PO SCH (09:36)
[2018-02-16] MEDS: metroNIDAZOLE 500 MG TABLET PO SCH ×3 (09:36→20:54)
[2018-02-16] MEDS: PANTOPRAZOLE 40MG TABLET PO SCH ×2 (09:36→16:50)
[2018-02-16] MEDS: MULTIVITAMIN TAB PO SCH (09:36)
[2018-02-16] MEDS: SUCRALFATE 1GM/10ML UCUP PO SCH ×2 (09:37→20:54)
[2018-02-16] MEDS: THIAMINE 200 MG/2 ML INJ IV SCH (09:37)
[2018-02-16] MEDS: ONDANSETRON 4 MG/2 ML VIAL IV PRN (11:09)
--- NOTE | 2018-02-16 13:46 | P.PN ---
Subjective Date of Service: 02/16/18 Primary Care Provider: Dr Mathew Chief Complaint: Colitis Patient seen and examined at bedside with RN. Chart reviewed. Case discussed with general surgery. Doing well this morning. MRI of the brain is negative for any acute abnormality. had extensive Discussion with patient in evening yesterday due to ataxic gait and possible of alcohol abuse Myopathy. Pt admitted to drinking everyday. However states last drink 3 week ago Review of Systems 10-point ROS is otherwise unremarkable Physical Examination - Vital Signs Temperature: 98.2 F Blood Pressure: 152/94 Pulse: 95 Respirations: 18 Pulse Ox (%): 97 - Physical Exam General: Alert, In no apparent distress HEENT: Atraumatic, PERRLA, EOMI Neck: Supple, JVD not distended Respiratory: Clear to auscultation bilaterally, Normal air movement Cardiovascular: Regular rate/rhythm, Normal S1 S2 Gastrointestinal: Normal bowel sounds, No tenderness Musculoskeletal: No tenderness Integumentary: No rashes Neurological: Normal speech, Normal tone, Normal affect Lymphatics: No axilla or inguinal lymphadenopathy - Studies Medications List Reviewed: Yes Assessment And Plan - Current Problems (Diagnosis) (1) Syncope Onset Date: 02/11/18 Current Visit: Yes Status: Acute Plan: Vasovagal syncope 2.2 to FTT 2.2 to poor Intake. -PT consulted. Reccs Appreciated -CM consulted for possible placement -ECHO and carotid negative for any acute abnormality -MRI is negative for any acute abnormality Qualifiers: Syncope type: vasovagal syncope Qualified Code(s): R55 - Syncope and collapse (2) Colitis Onset Date: 02/11/18 Current Visit: Yes Status: Acute Plan: Stercoral Colitis with high risk for Ulcer. Resolved -Gen Surgery Consulted. Recommendations appreciated at this time -PO cipro and flagyl for now -advance diet as tolerated (3) Generalized weakness Onset Date: 02/11/18 Current Visit: Yes Status: Acute Plan: 2.2 to FTT vs folate Def vs Alcohol Myopathy -PT consulted. appreciated reccs -Thiamine, folate and MVI started -Dietary Consulted (4) Bladder distention Onset Date: 02/11/18 Current Visit: Yes Status: Acute Plan: Bladder distention on CT -UA ordered. Culture neg -Gaston Placed and is draining clear urine -Monitor closely (5) Folate deficiency Onset Date: 02/11/18 Current Visit: Yes Status: Acute Plan: Most likely secondary to colitis -started on folate replacement at this time (6) HTN (hypertension) Onset Date: 02/11/18 Current Visit: Yes Status: Acute Plan: Stable at this time Qualifiers: Hypertension type: essential hypertension Qualified Code(s): I10 - Essential (primary) hypertension - Plan Awaiting clinical improvement at the time. Will continue to monitor here closely. Pending placement at this time Discharge Plan: Residential Plan to discharge in: 72 Hours - Code Status/Comfort Care Code Status Assessed: Yes Critical Care: No
[2018-02-16 19:18] LABS: Urine Appearance TURBID; Urine Blood NEGATIVE (NEG); Urine Color RED; Urine Glucose NEGATIVE (NEG); Urine Protein TRACE (NEG); Urine Specific Gravity 1.025 (1.005-1.030)
[2018-02-16 19:23] LABS: Urine Microscopic Reflex ORDER UMIC
[2018-02-16 20:35] LABS: Barbiturates NEGATIVE (NEGATIVE); Benzodiazepines NEGATIVE (NEGATIVE); Cocaine NEGATIVE (NEGATIVE); METHAMPHETAM NEGATIVE (NEGATIVE); Methadone NEGATIVE (NEGATIVE); Opiates NEGATIVE (NEGATIVE); Phencyclidine NEGATIVE (NEGATIVE); THC Cannibis NEGATIVE (NEGATIVE)
[2018-02-16 21:14] LABS: Urine Bacteria 20-50 /HPF (<20); Urine Culture Reflex Order REFLEXED; Urine RBC <5 /HPF (NONE SEEN); Urine Yeast MANY (NONE SEEN); Urine Yeast with Hyphae PRESENT
[2018-02-16 21:22] LABS: Urine Bilirubin NEGATIVE (NEG)
[2018-02-17 05:30] LABS: BUN Blood Urea Nitrogen 3 mg/dL (7-18); Bicarbonate 25 mmol/L (21-32); Glucose Level 111 mg/dL (74-106); Magnesium 1.5 mg/dL (1.8-2.4); Phosphorus 2.3 mg/dL (2.5-4.9); Potassium 3.6 mmol/L (3.5-5.1); Sodium Level 136 mmol/L (136-145)
[2018-02-17] MEDS: CIPROFLOXACIN HCL 500 MG TAB PO SCH ×2 (05:49→17:36)
[2018-02-17] MEDS ORDERED: POTASSIUM PHOS IN 0.9 % NACL 15 MMOL/250 ML BAG IV ONE (07:46)
[2018-02-17] MEDS ORDERED: Magnesium Sulfate 2gm IVPB 2 G/50 ML BAG IV ONE (08:00)
[2018-02-17] MEDS ORDERED: POTASSIUM 25 MEQ EFFERV TAB PO ONE (09:00)
[2018-02-17] MEDS: SUCRALFATE 1GM/10ML UCUP PO SCH ×2 (09:00→22:16)
[2018-02-17] MEDS ORDERED: POTASS/SODIUM PHOSPHATE 1 PKT POWD.PACK PO SCH (09:00)
[2018-02-17] MEDS: metroNIDAZOLE 500 MG TABLET PO SCH ×3 (09:55→22:14)
[2018-02-17] MEDS: FOLIC ACID 1 MG TABLET PO SCH (09:55)
[2018-02-17] MEDS: PANTOPRAZOLE 40MG TABLET PO SCH ×2 (09:55→17:36)
[2018-02-17] MEDS: THIAMINE 200 MG/2 ML INJ IV SCH (09:56)
[2018-02-17] MEDS: MULTIVITAMIN TAB PO SCH (09:56)
--- NOTE | 2018-02-17 18:42 | P.PN ---
Subjective Date of Service: 02/17/18 Primary Care Provider: Dr Mathew Chief Complaint: Colitis Subjective: Improving Physical Examination - Vital Signs Temperature: 98.3 F Blood Pressure: 156/92 Pulse: 102 Respirations: 20 Pulse Ox (%): 98 - Physical Exam General: Alert, In no apparent distress, Oriented x3, Cooperative HEENT: Atraumatic Neck: Supple Respiratory: Clear to auscultation bilaterally, Normal air movement Cardiovascular: Normal pulses, Regular rate/rhythm Gastrointestinal: Normal bowel sounds, Soft and benign, Non-distended, No tenderness, No masses, No rebound, No guarding Musculoskeletal: No erythema, No tenderness, No warmth Integumentary: No tenderness/swelling, No erythema, No warmth, No cyanosis Neurological: Normal speech, Normal strength at 5/5 x4 extr, Normal tone, Normal affect - Studies Medications List Reviewed: Yes Assessment & Plan Discharge Plan: Home Plan to discharge in: 24 Hours Physician Review Additional Text: Impression: Syncope resolved likely vasovagal Colitis Generalized weakness likely from malnutrition Hypertension Bladder distention now with Gaston catheter Malnutrition with folate deficiency Plan: Syncope resolved likely vasovagal: Much improved. Will check orthostatics in the morning. Will continue physical therapy. Anticipate discharge likely tomorrow if much improved. MRI unremarkable. Colitis: Continue with antibiotic therapy. Generalized weakness likely from malnutrition: Continue physical therapy. Anticipate discharge in the next day. Patient will likely require home health and physical therapy. Hypertension: Will start metoprolol. Will monitor and adjust appropriately. Bladder distention now with Gaston catheter: Continue with Gaston catheter. This can be further evaluated and address as an outpatient. Malnutrition with folate deficiency: Continue with replacement therapy. Time Spent Managing Pts Care (In Minutes): 55
[2018-02-17] MEDS: METOPROLOL TAR 25 MG TAB PO SCH (19:13)
[2018-02-17] MEDS ORDERED: MAGNESIUM SULFATE 1 gm IVPB 1 GM/100 ML BAG IV ONE (21:00)
[2018-02-17] MEDS: ENOXAPARIN 40 MG/0.4 ML SQ SCH (22:14)
[2018-02-18 05:24] LABS: Absolute Lymphocytes (CBC) 1.1 K/uL (0.7-4.9); Absolute Monocytes 0.4 K/uL (0.1-1.3); Absolute Neutrophil 2.5 K/uL (1.8-8.0); Basophils % 0.4 % (0-1.3); Eosinophils % 0.6 % (0-4.4); Hematocrit 29.9 % (36.0-45.0); Lymphocytes % 26.8 % (15.3-44.8); MCH 37.5 pg (27.0-35.0); MPV 8.3 fL (7.6-11.3); Monocytes % 10.6 % (3.3-12.3); RBC Red Blood Cell Count 2.76 M/uL (3.86-4.86)
[2018-02-18 05:44] LABS: BUN Blood Urea Nitrogen 3 mg/dL (7-18); Bicarbonate 30 mmol/L (21-32); Glucose Level 109 mg/dL (74-106); Phosphorus 3.5 mg/dL (2.5-4.9); Potassium 3.5 mmol/L (3.5-5.1); Sodium Level 140 mmol/L (136-145)
[2018-02-18] MEDS ORDERED: POTASSIUM 25 MEQ EFFERV TAB PO ONE (05:49)
[2018-02-18] MEDS: METOPROLOL TAR 25 MG TAB PO SCH ×2 (05:59→18:00)
[2018-02-18] MEDS: CIPROFLOXACIN HCL 500 MG TAB PO SCH ×2 (06:00→17:47)
[2018-02-18] MEDS: PANTOPRAZOLE 40MG TABLET PO SCH ×2 (08:30→16:30)
[2018-02-18] MEDS: FOLIC ACID 1 MG TABLET PO SCH (08:31)
[2018-02-18] MEDS: MULTIVITAMIN TAB PO SCH (08:31)
[2018-02-18] MEDS: metroNIDAZOLE 500 MG TABLET PO SCH ×2 (08:31→14:08)
[2018-02-18] MEDS: THIAMINE 200 MG/2 ML INJ IV SCH (08:31)
[2018-02-18] MEDS: SUCRALFATE 1GM/10ML UCUP PO SCH (08:32)
[2018-02-18 09:55] VITALS: O2SAT 97
--- NOTE | 2018-02-18 14:06 | P.DS ---
Admission Date: 02/10/18 Discharge Date: 02/18/18 Primary Care Provider: Dr. Mathew Disposition: ROUTINE DISCHARGE Discharge Condition: GOOD Reason for Admission: Colitis Consultations: Surgery-Dr. Kilgore Procedures: ECHO: EF-60% LEFT VENTRICULAR WALL MOTION: NORMAL DOPPLER/COLOR FLOW: NORMAL COMMENTS: NORMAL TWO DIMENSIONAL ECHOCARDIOGRAM WITH DOPPLER. NO WALL MOTION ABNORMALITY. NO EFFUSION. MRI Brain: COMPARISON: No comparisons TECHNIQUE: Multi-sequence, multiplanar MR imaging of the brain was performed without contrast. FINDINGS: No intracranial hemorrhage, hydrocephalus or extra-axial fluid collections.Moderate generalized brain atrophy. No edema or shift of midline structures. No findings to suspect brain mass. DWI is negative for acute CVA. Midline structures are normally formed. Mastoid air cells and paranasal sinuses are clear. IMPRESSION: No acute or concerning intracranial abnormalities. Carotid doppler: COMPARISON: No comparisons TECHNIQUE: Real-time sonographic evaluation of both carotid systems was performed. Doppler interrogation was performed with waveform tracing bilaterally. FINDINGS: Normal high resistance waveforms are noted in both external carotid arteries. The common carotid arteries and internal carotid arteries show normal low resistance waveforms. Mild hard plaque is seen in both carotid bulbs. Peak systolic and end diastolic velocity values and the ICA/CCA ratios are in the non-hemodynamically significant range. Antegrade flow seen in both vertebral arteries. IMPRESSION: Mild hard plaque in both carotid bulbs. No evidence of a hemodynamically significant stenosis. CT Scan: COMPARISON: No comparisons TECHNIQUE: Biphasic CT imaging of the abdomen and pelvis was performed with 100 ml non-ionic IV contrast. All CT scans are performed using dose optimization technique as appropriate and may include automated exposure control or mA/KV adjustment according to patient size. FINDINGS: The lung bases are clear.Small hiatal hernia. Diffuse fatty liver is present. The spleen, pancreas and adrenal glands are normal. Few areas of cortical hypodensity noted in both kidneys may be related to previous infection. No hydronephrosis or aggressive renal mass. No bowel obstruction, free air, free fluid or abscess. Large amount of stool is seen in the rectum with perirectal fat stranding and thickening. The urinary bladder is markedly distended. The appendix is not identified as a discrete structure, however, no secondary findings of appendicitis are identified. No evidence of significant lymphadenopathy. Mild L1 compression deformity is present. IMPRESSION: Rectal fecal impaction with stercoral colitis suspected. Marked urinary bladder distention may be related to bladder outlet obstruction or neurogenic bladder. Mild L1 compression deformity is present, age uncertain but probably chronic. Medical Problem List: Syncope resolved likely vasovagal and dehydration and malnutrition Stercol Colitis with rectal fecal impaction Generalized weakness likely from malnutrition Hypertension Bladder distention now with Gaston catheter secondary to possible for outlet obstruction due to fecal impaction Malnutrition with folate deficiency Mild carotid artery disease Alcohol abuse GERD Brief History of Present Illness: 72-year-old female presented to emergency room with generalized weakness. Weakness has occurred over the past several weeks. She was seen at [facility] for syncope. At that time lab and test were negative for CVA. Patient was seen for in the ER. She was found to be dehydrated and malnourished. She also had bladder distention. CT showed stercol colitis with fecal impaction. She was admitted for further evaluation. Hospital Course: Patient presented with weakness and history of syncope. Syncope likely vasovagal reaction related to dehydration and malnutrition. Workup included brain MRI, carotid Doppler, and echocardiogram. All unremarkable except mild plaque without significant stenosis. At discharge she will continue with aspirin 81 mg daily. At discharge she will go to a nursing skilled facility to increase her ambulation. Patient found to have stercol colitis with rectal fecal impaction. Patient given antibiotic therapy during the course of her stay. This improved. Surgery was consulted. No fecal digital disimpaction was required. Patient now with good bowel movement. Patient will need continue with good bowel movement monitoring. At discharge she is without any significant nausea, vomiting. She has tolerated her diet. No need for further antibiotic medication. Generalized weakness likely related to malnutrition. Patient also reported alcohol abuse. At discharge CBC stable. She will continue with folic acid 1 mg daily, multi vitamin 1 pill daily and thiamine 100 mg daily. Alcohol cessation education provided. She will continue with physical therapy at skilled facility. If this persists patient may need to be evaluated for alcohol myositis. Patient with hypertension. Medication was started your her stay. At discharge blood pressure stable. She will continue with metoprolol 12.5 mg 1 pill twice daily. Recommendation to maintain blood pressures less 150/80. Further adjustment can be done by her PCP. Patient found to have bladder distention upon admission. Gaston catheter placed. CT scan revealed distension likely related to bladder outlet obstruction related to fecal impaction. Patient remains with Gaston catheter. Patient can be given a trial off of the catheter during her stay at the skilled facility. If unsuccessful Gaston catheter may need to be maintained and follow up with urology will be recommended. Patient with GERD. Patient will continue with Protonix 40 mg 1 pill once daily at discharge. Vital Signs/Physical Exam: Temp Pulse Resp BP Pulse Ox 98.3 F 74 18 135/85 97 02/18/18 08:00 02/18/18 08:00 02/18/18 08:00 02/18/18 08:00 02/18/18 08:00 General: Alert, In no apparent distress, Oriented x3, Cooperative HEENT: Atraumatic, Mucous membr. moist/pink Neck: Supple Respiratory: Clear to auscultation bilaterally, Normal air movement Cardiovascular: Normal pulses, Regular rate/rhythm Gastrointestinal: Normal bowel sounds, Soft and benign, Non-distended, No tenderness, No masses, No rebound, No guarding Musculoskeletal: No warmth Integumentary: No tenderness/swelling, No erythema, No warmth, No cyanosis Neurological: Normal speech, Normal strength at 5/5 x4 extr, Normal tone Laboratory Data at Discharge: WBC 4.1 K/uL (4.3-10.9) L D 02/18/18 04:15 Hgb 10.4 g/dL (12.0-15.0) L 02/18/18 04:15 Hct 29.9 % (36.0-45.0) L 02/18/18 04:15 Plt Count 182 K/uL (152-406) 02/18/18 04:15 PT 12.8 SECONDS (9.5-12.5) H 02/10/18 11:50 INR 1.08 02/10/18 11:50 Sodium 140 mmol/L (136-145) 02/18/18 04:15 Potassium 3.5 mmol/L (3.5-5.1) 02/18/18 04:15 BUN 3 mg/dL (7-18) L 02/18/18 04:15 Creatinine 0.30 mg/dL (0.55-1.3) L 02/18/18 04:15 Glucose 109 mg/dL (74-106) H 02/18/18 04:15 Phosphorus 3.5 mg/dL (2.5-4.9) D 02/18/18 04:15 Magnesium 2.0 mg/dL (1.8-2.4) 02/18/18 04:15 Total Bilirubin 0.4 mg/dL (0.2-1.0) 02/15/18 16:46 AST 15 U/L (15-37) 02/15/18 16:46 ALT 16 U/L (12-78) 02/15/18 16:46 Alkaline Phosphatase 92 U/L (45-117) 02/15/18 16:46 Home Medications: Metoprolol Tartrate [Lopressor*] 12.5 mg PO BID 6AM 6PM #60 tab 02/18/18 Multivit,Ther Iron,Ca,FA & Min [Centrum Tablet*] 1 tab PO DAILY #90 tab Pantoprazole [Protonix Tab*] 40 mg PO DAILY #30 tab 02/18/18 Thiamine HCl 100 mg PO DAILY #90 tablet 02/18/18 New Medications: Metoprolol Tartrate [Lopressor*] 12.5 mg PO BID 6AM 6PM #60 tab Multivit,Ther Iron,Ca,FA & Min [Centrum Tablet*] 1 tab PO DAILY #90 tab Pantoprazole [Protonix Tab*] 40 mg PO DAILY #30 tab Thiamine HCl 100 mg PO DAILY #90 tablet Patient Discharge Instructions: 1. Patient will be transferred to skilled facility to continue her care. 2. Patient presented with weakness and history of syncope. Syncope likely vasovagal reaction related to dehydration and malnutrition. Workup included brain MRI, carotid Doppler, and echocardiogram. All unremarkable except mild plaque without significant stenosis. At discharge she will continue with aspirin 81 mg daily. At discharge she will go to a nursing skilled facility to increase her ambulation. 3. Patient found to have stercol colitis with rectal fecal impaction. Patient given antibiotic therapy during the course of her stay. This improved. Surgery was consulted. No fecal digital disimpaction was required. Patient now with good bowel movement. Patient will need continue with good bowel movement monitoring. At discharge she is without any significant nausea, vomiting. She has tolerated her diet. No need for further antibiotic medication. 4. Generalized weakness likely related to malnutrition. Patient also reported alcohol abuse. At discharge CBC stable. She will continue with folic acid 1 mg daily, multi vitamin 1 pill daily and thiamine 100 mg daily. Alcohol cessation education provided. She will continue with physical therapy at skilled facility. If this persists patient may need to be evaluated for alcohol myositis. 5. Patient with hypertension. Medication was started your her stay. At discharge blood pressure stable. She will continue with metoprolol 12.5 mg 1 pill twice daily. Recommendation to maintain blood pressures less 150/80. Further adjustment can be done by her PCP. 6. Patient found to have bladder distention upon admission. Gaston catheter placed. CT scan revealed distension likely related to bladder outlet obstruction related to fecal impaction. Patient remains with Gaston catheter. Patient can be given a trial off of the catheter during her stay at the skilled facility. If unsuccessful Gaston catheter may need to be maintained and follow up with urology will be recommended. 7. Patient with GERD. Patient will continue with Protonix 40 mg 1 pill once daily at discharge. Diet: Regular Activity: Ad johnny Time spent managing pt's care (in minutes): 55
[2018-02-18] MEDS: ENOXAPARIN 40 MG/0.4 ML SQ SCH (17:00)
[2018-02-18 18:23] VITALS: BP 112/72; TEMP 98
== END 2018-02-18 19:07 | DRG 389 ==
LOC: ER 10:58 → 4TH 15:48
PROVIDERS: ADMIT Family Medicine; ATTEND Family Medicine
PROC: 0T9B70Z Drainage of Bladder with Drainage Device, Via Natural or Artificial Opening (ICD-10-PCS; principal; 2018-02-10)
DX: K56.41 Fecal impaction (principal); E46 Unspecified protein-calorie malnutrition; K52.89 Other specified noninfective gastroenteritis and colitis; E86.0 Dehydration; I10 Essential (primary) hypertension; R55 Syncope and collapse; E53.8 Deficiency of other specified B group vitamins; N32.89 Other specified disorders of bladder; R33.9 Retention of urine, unspecified; F10.10 Alcohol abuse, uncomplicated; Z68.23 Body mass index [BMI] 23.0-23.9, adult
CPT/HCPCS: 36415; 51702; 70551; 71045; 74177; 80048; 80053; 80076; 80307; 81003; 81015; 82306; 82607; 82746; 82962; 83605; 83735; 83880; 84100; 84132; 84484; 85025; 85610; 87086; 87088; 93005; 93306; 93880; 96361; 96365; 96367; 96375; 97163; 99285; J0744; J1650; J1940; J2405; J3411; J3475; J7030; Q9967